=== PATIENT | female | born 1960 | race Caucasian/White ===

== ENCOUNTER 2023-09-11 09:37 | Day surgery (SDC) | payer MEDICAID ==
[~2023-09-11] VITALS: Ht 152.4 cm; Wt 72.6 kg
[2023-09-11 12:00] VITALS: O2SAT 99
[2023-09-11] MEDS ORDERED: KETOROLAC TROMETHAMINE 30 MG VIAL IVP PRN (12:15)
[2023-09-11] MEDS ORDERED: HYDROmorphone 1 MG/ML INJ. CARTRIDGE IVP PRN (12:15)
[2023-09-11] MEDS ORDERED: ONDANSETRON HCL 4 MG/2 ML VIAL IVP PRN (12:15)
[2023-09-11] MEDS ORDERED: METOCLOPRAMIDE HCL 10 MG/2 ML VIAL IVP PRN (12:15)
[2023-09-11] MEDS ORDERED: IBUPROFEN 600 MG TABLET PO ONE (12:15)
[2023-09-11] MEDS ORDERED: PROPOFOL 200MG/ 20ML VIAL (DIPRIVAN) IV ONE (12:30)
[2023-09-11] MEDS ORDERED: NS IRRIG SOLN 1000 ML IR ONE (12:30)
[2023-09-11] MEDS ORDERED: LR 1,000 ML IV.SOLN IV ONE (12:30)
[2023-09-11] MEDS ORDERED: SEVOFLURANE 15 MIN GAS INH ONE (12:30)
[2023-09-11 14:42] VITALS: BP_SYST 135; PULSE 59; RESP 17
== END 2023-09-11 14:05 | disposition home or self-care (01) ==
LOC: SDS 09:37 → SMU 09:39 → SDS 14:05
PROVIDERS: ATTEND Obstetrics & Gynecology
DX: D06.9 Carcinoma in situ of cervix, unspecified (principal)
CPT/HCPCS: 57522; 87081; 88305; 88307; J2704; J7120